=== PATIENT | male | born 1995 | race African-American/Black ===

== ENCOUNTER 2023-05-18 16:58 | Emergency (ER) | payer OTHER ==
[2023-05-18 17:13] VITALS: BP 119/79; PULSE 60; RESP 16; TEMP 98.6; BMI 21.6
[2023-05-18] MEDS ORDERED: IBUPROFEN 600 MG TABLET (FP) PO ONE ×2 (20:28→20:30)
== END 2023-05-18 20:56 | disposition home or self-care (01) ==
LOC: FER 16:58
DX: S69.91XA Unspecified injury of right wrist, hand and finger(s), initial encounter (principal); V89.2XXA Person injured in unspecified motor-vehicle accident, traffic, initial encounter
CPT/HCPCS: 70450-TC; 72125-TC; 73130-TC-RT-FY; 73562-TC-RT-FY; 99284-25